=== PATIENT | female | born 1995 | race African-American/Black ===

== ENCOUNTER 2017-05-01 11:00 | Emergency (ER) | payer MEDICAID ==
[~2017-05-01] VITALS: Ht 162.6 cm; Wt 9.1 kg
[~2017-05-01 11:00] MED LIST: ZOFR4TAB3 SL
[2017-05-01 11:01] VITALS: BP 142/65; PULSE 97; RESP 18; TEMP 99; O2SAT 99
--- NOTE | 2017-05-01 11:52 | PD ---
HPI Chief Complaint: Cold / Flu Symptoms Time Seen by Provider: 11:52 Travel History International Travel<30 days: No Contact w/Intl Traveler<30days: No Traveled to known affect area: No History of Present Illness HPI 22-year-old female presents to emergency department for evaluation nausea, vomiting, and sore throat 2 days. Patient has had a subjective fever and chills. Patient is uncertain if she is . Her last menstrual cycle was last month, uncertain of the definite date. She has no other symptoms to report. PFSH Past Medical History Medical History: Denies Significant Hx Diminished Hearing: No Immunizations Current: Yes ?: Unknown LMP: 03/2017 : 2 Para: 1 Social History Alcohol Use: No Tobacco Use: No Substance Use: No Allergies-Medications (Allergen,Severity, Reaction): Coded Allergies: No Known Allergies (Verified , 07/14/15) Reported Meds & Prescriptions Reported Meds & Active Scripts Active Zofran ODT (Ondansetron HCl) 4 Mg Tab 4 Mg SL Q8 PRN FOR NAUSEA/VOMITING Review of Systems Except as stated in HPI: all other systems reviewed are Neg Physical Exam Narrative GENERAL: Well-nourished, well-developed patient. Ambulatory and in no acute distress SKIN: Focused skin assessment warm/dry. HEAD: Normocephalic. EYES: No scleral icterus. No injection or drainage. NECK: trachea midline. CARDIOVASCULAR: Regular rate RESPIRATORY: No accessory muscle use. GASTROINTESTINAL: Abdomen nondistended. MUSCULOSKELETAL: No cyanosis, or edema. BACK: without obvious deformity. Data Data Last Documented VS Vital Signs Date Time Temp Pulse Resp B/P (MAP) Pulse Ox O2 Delivery O2 Flow Rate FiO2 05/01/17 11:47 05/01/17 11:01 99.0 97 18 99 Room Air Orders Orders Urinalysis - C+S If Indicated (05/01/17 11:20) Ed Urine Pregnancytest Poc (05/01/17 11:20) Labs Laboratory Tests Test 05/01/17 11:25 Urine Color YELLOW Urine Turbidity HAZY Urine pH 5.5 Urine Specific Johnson 1.033 Urine Protein 30 mg/dL Urine Glucose (UA) NEG mg/dL Urine Ketones NEG mg/dL Urine Occult Blood NEG Urine Nitrite NEG Urine Bilirubin NEG Urine Urobilinogen 2.0 MG/DL Urine Leukocyte Esterase LARGE Urine RBC 2 /hpf Urine WBC 4 /hpf Urine Squamous Epithelial Cells 34 /hpf Urine Amorphous Sediment RARE Urine Bacteria RARE /hpf Urine Mucus MANY /lpf Microscopic Urinalysis Comment CULT NOT INDICATED MDM Medical Decision Making Medical Screen Exam Complete: Yes Emergency Medical Condition: Yes Medical Record Reviewed: Yes Differential Diagnosis Influenza versus gastritis versus gastroenteritis versus pharyngitis versus Narrative Course 22-year-old female presents to emergency department for evaluation. Patient appears nontoxic. Workup is initiated in triage. Once a medical bed becomes available, patient will be transferred and care assumed by the provider. AMA: The risks of leaving against medical advice without further evaluation treatment were discussed with the patient. These risks include cardiac dysfunction, cardiac dysrhythmia, possible heart attack, possible stroke or . The patient indicated understanding of these risks and appeared to have the capacity to make this decision. Diagnosis Primary Impression: Nausea & vomiting Additional Impression: Disposition: 07 AGAINST MEDICAL ADVICE Condition: Stable SeeBeth ulrichguanaco VIEIRA May 01, 2017 11:52
[2017-05-01 12:03] LABS: BACTERIA, URINE RARE /hpf; BLOOD, URINE NEG (NEG); COMMENT (UR) CULT NOT INDICATED; CULTURE IF INDICATED CULT NOT INDICATED; GLUCOSE,URINE NEG (NEG); KETONE, URINE NEG (NEG); MUCUS URINE MANY /lpf (OCC); NITRITE,URINE NEG (NEG); PH, URINE 5.5 (5.0-8.5); SQUAMOUS EPITHELIAL CELL URINE 34 /hpf (0-5); URINE COLOR YELLOW (YELLW/STRAW)
== END 2017-05-01 11:47 | disposition left against medical advice (07) ==
LOC: NED 11:00
DX: O21.9 Vomiting of pregnancy, unspecified (principal); J02.9 Acute pharyngitis, unspecified
CPT/HCPCS: 81001; 84703; 99283

== ENCOUNTER 2017-06-27 09:48 | Emergency (ER) | payer MEDICAID ==
[~2017-06-27] VITALS: Ht 167.6 cm; Wt 92.0 kg
[2017-06-27 09:50] VITALS: BP 133/72; PULSE 99; RESP 18; TEMP 98.9; O2SAT 97
--- NOTE | 2017-06-27 10:50 | PD ---
HPI Chief Complaint: Related Problem Time Seen by Provider: 10:17 Travel History International Travel<30 days: No Contact w/Intl Traveler<30days: No Traveled to known affect area: No History of Present Illness HPI Patient is a 22 yo female approximately 13 weeks , LMP 03/22/17, with a chief complaint of spotting and abdominal cramping that started yesterday. Her abdominal and back pain were an 8/10 yesterday and is now a 6/ 10. Her pain is diffuse across her lower abdomen and lower back. Her spotting started last night and she used 1 pad. Her first 4 years ago was a healthy term vaginal delivery and her second 2 years ago resulted in a stat due to pre-eclampsia. She has increased nausea and vomiting during this and has headaches every day. She has not seen an Child & Adolescent Psychiatrist yet for this . She does not take any medications at home. Denies tobacco, alcohol or drug use. PFSH Past Medical History Diminished Hearing: No Immunizations Current: Yes ?: LMP: 03/22/17 : 2 Para: 1 Social History Alcohol Use: No Tobacco Use: No Substance Use: No Allergies-Medications (Allergen,Severity, Reaction): Coded Allergies: No Known Allergies (Verified Adverse Reaction, Unknown, 06/27/17) Reported Meds & Prescriptions Reported Meds & Active Scripts Active Plus Iron 29-1 mg ( Vit-Iron Carbonyl) 29 Mg Iron-1 Mg Tab 1 Tab PO DAILY Metrogel Vaginal Gel (Metronidazole Vaginal Gel) 0.75 % Gel 1 Appl VAGINAL HS 5 Days Review of Systems Except as stated in HPI: all other systems reviewed are Neg Physical Exam Narrative GENERAL: well appearing female in no acute distress SKIN: Warm and dry. HEAD: Atraumatic. Normocephalic. EYES: Pupils equal and round. No scleral icterus. No injection or drainage. ENT: No nasal bleeding or discharge. Mucous membranes pink and moist. NECK: Trachea midline. No JVD. CARDIOVASCULAR: Regular rate and rhythm. RESPIRATORY: No accessory muscle use. Clear to auscultation. Breath sounds equal bilaterally. GASTROINTESTINAL: Gravid uterus palpable. Minimal pain with superficial palpation of her suprapubic area.. Negative psoas and obturator signs. No rebound no percussive tenderness, fairly benign abdomen. GENITOURINARY: Exam performed with female nurse explosive man present all times No bimanual tenderness no cervical motion tenderness, copious white discharge consistent with bacterial vaginitis. MUSCULOSKELETAL: Extremities without clubbing, cyanosis, or edema. No obvious deformities. NEUROLOGICAL: Awake and alert. No obvious cranial nerve deficits. Motor grossly within normal limits. PSYCHIATRIC: Appropriate mood and affect; insight and judgment normal. Data Data Last Documented VS Vital Signs Date Time Temp Pulse Resp B/P (MAP) Pulse Ox O2 Delivery O2 Flow Rate FiO2 06/27/17 13:32 06/27/17 09:50 98.9 99 18 97 Room Air Orders Orders Ed Poc Ultrasound (06/27/17 ) Acetaminophen (Tylenol) (06/27/17 12:30) Wet Prep Profile (06/27/17 12:34) Gc And Chlamydia Pcr (06/27/17 12:34) Ed Discharge Order (06/27/17 13:21) Labs Laboratory Tests Test 06/27/17 12:35 Clue Cells (Wet Prep) PRESENT Vaginal Trichomonas (Wet Prep) NONE SEEN Vaginal Yeast (Wet Prep) NONE SEEN Chlamydia trachomatis DNA (PCR) NOT DETECTED Neisseria gonorrhoeae DNA (PCR) NOT DETECTED MDM Medical Decision Making Medical Screen Exam Complete: Yes Emergency Medical Condition: Yes Differential Diagnosis BV, CV, ectopic unlikely, appendicitis considered but seems highly unlikely, round ligament pain. Narrative Course Patient roomed emergency department, intrauterine confirmed, has BV by physical exam and wet prep. She appears comfortable in no obvious distress. Discussed with her follow-up with an DISTRIBUTION TECHNICIAN, vitamins, early care, she stable for discharge Procedures Procedure Narrative Bedside ultrasound abdomen: Bedside ultrasound shows single intrauterine heart tones by M-mode to 150s, positive motion, posterior placenta, no gross abnormality, no free fluid in the pelvis, likely 14 weeks 1 day by crown-rump length. Diagnosis Primary Impression: Bacterial vaginosis Med/Other Pt SpecificInfo: Prescription(s) given Scripts Vit-Iron Carbonyl ( Plus Iron 29-1 mg) 29 Mg Iron-1 Mg Tab 1 TAB PO DAILY for Nutritional Supplement, #30 TAB 9 Refills Prov: Christofer Zuñiga MD 06/27/17 Metronidazole Vaginal Gel (Metrogel Vaginal Gel) 0.75 % Gel 1 APPL VAGINAL HS for Infection for 5 Days, #1 TUBE 0 Refills Prov: Christofer Zuñiga MD 06/27/17 Disposition: 01 DISCHARGE HOME Condition: Stable Christofer Zuñiga MD Jun 27, 2017 10:50
[2017-06-27] MEDS ORDERED: ACETAMINOPHEN 325 MG TAB PO ONE (12:30)
[2017-06-27] MEDS ORDERED: PREN29TA PO (13:20)
[2017-06-27] MEDS ORDERED: METR0.7528 VAGINAL (13:20)
== END 2017-06-27 13:32 | disposition home or self-care (01) ==
LOC: NEPD 09:48
DX: O23.591 Infection of other part of genital tract in pregnancy, first trimester (principal); B96.89 Other specified bacterial agents as the cause of diseases classified elsewhere; O21.9 Vomiting of pregnancy, unspecified; Z3A.13 13 weeks gestation of pregnancy
CPT/HCPCS: 87210; 87491; 87591; 99283

== ENCOUNTER 2017-09-03 04:53 | Emergency (ER) | payer MEDICAID ==
[~2017-09-03 04:53] MED LIST changes: +METR0.7528 VAGINAL; +PREN29TA PO; -ZOFR4TAB3 SL
--- NOTE | 2017-09-03 06:22 | PD ---
HPI Chief Complaint Pain in my belly Date Seen: Sep 03, 2017 Time Seen: 06:11 Travel History International Travel<30 Days: No Contact w/Intl Traveler<30Days: No Known Affected Area: No History of Present Illness HPI 22-year-old 3 para 2 at 23 weeks who comes with pain in her right lower quadrant for 1 week. She states that the pain occurs when she moves her body or less her leg on the right. She has no pain at all at rest. She denies any dysuria hematuria or frequency. No change in her bowel habits. She has not noticed any bulging or mass. She has noted no discoloration. She reports movement but is not tender. No vaginal bleeding or discharge. History Past Medical History Narrative Medical She reports low platelets this that are currently under evaluation. Obstetric History Obstetric History One vaginal delivery and 1 section Current under the care of Dr. Fontana at . She is being evaluated for low platelets. Past Surgical History Narrative Surgical Family History Family History: Negative Social History Alcohol Use: No Tobacco Use: No Substance Abuse: No Allergies-Medications (Allergen,Severity, Reaction): Coded Allergies: No Known Allergies (Verified Adverse Reaction, Unknown, 06/27/17) Home Meds Active Scripts Vit-Iron Carbonyl ( Plus Iron 29-1 mg) 29 Mg Iron-1 Mg Tab, 1 TAB PO DAILY for Nutritional Supplement, #30 TAB 9 Refills Prov:Christofer Zuñiga MD 06/27/17 Metronidazole Vaginal Gel (Metrogel Vaginal Gel) 0.75 % Gel, 1 APPL VAGINAL HS for Infection for 5 Days, #1 TUBE 0 Refills Prov:Christofer Zuñiga MD 06/27/17 Review of Systems Except as stated in HPI: all other systems reviewed are Neg Physical Exam Narrative GENERAL: Well-nourished, well-developed patient. SKIN: Warm and dry. HEAD: Normocephalic and atraumatic. EYES: No scleral icterus. No injection or drainage. ENT: No nasal drainage noted. Mucous membranes pink. Airway patent. NECK: Supple, trachea midline. No JVD. CARDIOVASCULAR: Regular rate and rhythm without murmurs, gallops, or rubs. RESPIRATORY: Breath sounds equal bilaterally. No accessory muscle use. BREASTS: Bilateral exam showed no masses , no retractions, no nipple discharge. ABDOMEN/GI: Abdomen soft, non-tender at rest, bowel sounds present, no rebound, no guarding. The pain can be duplicated by the patient raising the right thigh. Passive elevation of the leg does not cause pain. There is no mass or discoloration. There is no appreciable hernia. Gravid to [-] weeks size Fundal Height: [U+2-] GENITOURINARY: External Genitalia: intact and normal in appearance BUS glands: [-] Cervix: [-] Dilatation: [-] Effacement: [-] Station: [-] Presentation: [-] Membranes: [intact or ruptured] Uterine Contractions: [-no] FHT's: Category: [-] Baseline: [-140] Reactive: [-] Variability: [-] Decels: [-] EXTREMITIES: No cyanosis or edema. BACK: Nontender without obvious deformity. No CVA tenderness. NEUROLOGICAL: Awake and alert. Motor and sensory grossly within normal limits. Five out of 5 muscle strength in all muscle groups. Normal speech. Data Data Vital Signs Reviewed: Yes MDM Medical Record Reviewed: No Narrative Course / MDM Assessment: Musculoskeletal pain of the right lower quadrant Plan: Ice, Tylenol. Abdominal support binder. Diagnosis Diagnosis: Primary Impression: 23 weeks gestation of Additional Impression: Musculoskeletal pain Disposition: 01 DISCHARGE HOME Condition: Good Bin Bright MD Sep 03, 2017 06:22
== END 2017-09-03 06:33 | disposition home or self-care (01) ==
LOC: HOBED 04:53
DX: O99.89 Other specified diseases and conditions complicating pregnancy, childbirth and the puerperium (principal); M79.1 Myalgia; Z3A.23 23 weeks gestation of pregnancy
CPT/HCPCS: 99283